=== PATIENT | male | born 1975 | race Caucasian/White ===

== ENCOUNTER 2019-08-03 07:58 | Emergency (ER) | payer OTHER ==
[~2019-08-03] VITALS: Ht 180.3 cm; Wt 74.8 kg
[2019-08-03 08:08] VITALS: BP 134/98
[2019-08-03] MEDS ORDERED: KETOROLAC 30 MG/ML VIAL IVP ONE (08:30)
[2019-08-03] MEDS ORDERED: NACL 0.9% 1,000 ML IV ONE (08:30)
[2019-08-03 09:34] VITALS: BP 138/98
== END 2019-08-03 09:35 | disposition home or self-care (01) ==
LOC: MED 07:58
DX: F41.9 Anxiety disorder, unspecified (principal); R05 Cough; Z88.1 Allergy status to other antibiotic agents
CPT/HCPCS: 93005; 96374; 99283; J1885; J7030

== ENCOUNTER 2019-09-21 09:20 | Inpatient (IN) | payer OTHER ==
[~2019-09-21] VITALS: Ht 180.3 cm; Wt 74.4 kg
[2019-09-21 09:31] VITALS: BP 141/97
--- NOTE | 2019-09-21 09:39 | NUR ---
PATIENT AMBULATED TO BED 2.
--- NOTE | 2019-09-21 10:09 | NUR ---
PT BIB SELF WITH C/O ALCOHOL WITHDRAWAL SX. PT STATES HAVING TREMOUS WHILE DRIVING TO WORK THIS MORNING. ALSO C/O FEELING NAUSEATED AND DEHYDRATED AND HAVING INTERMITTENT CRAMPING MEDIAL ABDOMINAL PAIN. DENIES V/D; SKIN IS PINK/WARM/DRY; AAOX4 WITH EVEN AND STEADY GAIT; LUNGS CLEAR BL; HR TACHYCARDIC; PT DENIES ANY FEVER, CP, SOB, OR COUGH AT THIS TIME; PATIENT STATES PAIN OF 3/10 AT THIS TIME; VSS; PATIENT POSITIONED FOR COMFORT; HOB ELEVATED; BEDRAILS UP X1; BED DOWN. ER MD MADE AWARE OF PT STATUS.
[2019-09-21] MEDS ORDERED: NACL 0.9% 1,000 ML IV ONE ×2 (10:35→12:00)
[2019-09-21] MEDS ORDERED: ONDANSETRON 4 MG/2 ML VIAL IVP ONE (10:35)
[2019-09-21] MEDS ORDERED: FAMOTIDINE 20 MG/2 ML VIAL IVP ONE (10:35)
[2019-09-21] MEDS ORDERED: NALT50TA PO (10:50)
[2019-09-21] MEDS ORDERED: MIRT30TA PO (10:50)
--- NOTE | 2019-09-21 11:00 | NUR ---
PT IS RESTING IN BED. VSS.
[2019-09-21 11:08] LABS: APPEARANCE,URINE CLEAR (CLEAR); BILIRUBIN,URINE NEGATIVE (NEGATIVE); BLOOD, URINE NEGATIVE (NEGATIVE); COLOR,URINE YELLOW (YELLOW); LEUKOCYTE ESTERASE ,URINE NEGATIVE (NEGATIVE); NITRITE, URINE NEGATIVE (NEGATIVE); PH,URINE >=9.0 (5.0-9.0); UGLUCOSE NEGATIVE (NEGATIVE)
[2019-09-21 11:09] LABS: EOSINOPHILS % (AUTO) 0.1 % (0.0-4.0); HEMOGLOBIN 15.6 g/dL (12.0-18.0); LYMPHOCYTES # (AUTO) 0.7 K/uL (2.0-11.5); LYMPHOCYTES % (AUTO) 16.5 % (20.5-51.1); MEAN CORPUSCULAR HEMOGLOBIN 35 pg (27-31); MEAN CORPUSCULAR HGB CONC 34 g/dL (33-37); MEAN CORPUSCULAR VOLUME 101.9 fL (80-94); MONOCYTES # (AUTO) 0.5 K/uL (0.8-1.0); MONOCYTES % (AUTO) 10.9 % (1.7-9.3); NEUTROPHILS # (AUTO) 3.2 K/uL (1.8-7.7); NEUTROPHILS % (AUTO) 71.5 % (42.2-75.2); PLATELET COUNT (AUTO) 196 K/uL (140-450); RED BLOOD CELL COUNT(AUTO) 4.51 MIL/uL (4.20-6.10); RED CELL DISTRIBUTION WIDTH 14.9 % (11.6-13.7); WHITE BLOOD COUNT (AUTO) 4.5 K/uL (4.8-10.8)
[2019-09-21 11:18] LABS: ALBUMIN 4.6 g/dL (3.4-5.0); ANION GAP 17.6 (8-16); CARBON DIOXIDE 26.1 mmol/L (21-32); CREATININE 0.9 mg/dL (0.7-1.3); POTASSIUM 3.7 mmol/L (3.5-5.1); TOTAL BILIRUBIN 0.7 mg/dL (0.0-1.0)
--- NOTE | 2019-09-21 11:50 | NUR ---
PT AMBULATED TO BATHROOM WITH STEADY GAIT.
[2019-09-21] MEDS ORDERED: LORazepam 2 MG/ML VIAL IVP PRN (12:00)
[2019-09-21] MEDS ORDERED: POTASSIUM CHLORIDE 10 MEQ TABER PO PRN (12:00)
[2019-09-21] MEDS ORDERED: MAG SULF 2000 MG/WATER PREMIX 50 ML IV PRN (12:00)
[2019-09-21] MEDS: chlordiazePOXIDE 25 MG CAP PO SCH ×2 (12:34→18:29)
--- NOTE | 2019-09-21 12:43 | NUR ---
PT'S MOTHER IS AT BEDSIDE AND TALKING TO PT.
[2019-09-21] MEDS ORDERED: ONDANSETRON 4 MG/2 ML VIAL IVP PRN (13:05)
[2019-09-21] MEDS ORDERED: ALBUTEROL 0.083% 2.5 MG/3 ML NEBU IH PRN (13:05)
[2019-09-21] MEDS ORDERED: ACETAMINOPHEN 325 MG TAB PO PRN (13:05)
[2019-09-21] MEDS ORDERED: HYDROcodone/APAP 5/325 MG 1 TAB TAB PO PRN (13:05)
--- NOTE | 2019-09-21 13:51 | NUR ---
PT IS RESTING IN BED. INFORMED PT HE CAN EAT PER DR. CISSE.
--- NOTE | 2019-09-21 15:15 | NUR ---
PT ARRIVED ON THE UNIT PT AMBULATE FROM GURNEY TO BED WITH A STEADY GAIT. ORIENTED PT TO UNIT, STAFF AND ROOM. PT APPEARS STABLE AND IN NO APPARENT DISTRESS. ALL SAFETY MEASURES ARE IN PLACE ADMIT VITALS TAKEN. MRSA NARES COLLECTED. HEAD TO TOE ASSESSMENT PERFORM PT IV SITE PATENT AND SHOWS NO SIGNS OF INFILTRATION OR INFLAMMATION. PT MOTHER AT BEDSIDE WILL CONTINUE TO MONITOR PT
--- NOTE | 2019-09-21 15:15 | NUR ---
Patient will be admitted to care of alcohol withdrawal. Admited to Telemetry. Will go to room 107B. Belongings list completed. Report to CORRY Armenta.
[2019-09-21 16:01] VITALS: BP 117/68
--- NOTE | 2019-09-21 17:12 | NUR ---
FREQUENT ROUNDING ON PT PT APPEARS STABLE AND IN NO APPARENT DISTRESS. ALL SAFETY MEASURES ARE IN PLACE WILL CONTINUE TO MONITOR
--- NOTE | 2019-09-21 19:26 | NUR ---
endorsed pt to pm rn pt awake in bed pt appears stable and in no apparent distress. all safety measures are in place
--- NOTE | 2019-09-21 19:27 | NUR ---
RECEIVED BEDSIDE REPORT FROM DAY SHIFT NURSE JOSÉ LUIS RN, TP STABLE, NO DISTRESS NOTED, IV TO LR AC 20G PATEN INTACT, INFUSING NS @ 100ML/HR, INFUSING WELL, PT ON ROOM AIR, NO SOB NOTED, INITIAL ASSESSMENT DONE, ALL SAFETY PRECAUTION MET, CALL LIGHT WITHIN REACH, WILL CONTINUE TO MONITOR.
[2019-09-21 20:00] VITALS: BP 116/75
[2019-09-21] MEDS ORDERED: MIRTAZAPINE 15 MG TAB PO SCH (21:00)
--- NOTE | 2019-09-21 21:10 | NUR ---
DUE MEDICATION ADMINISTERED, PT TOLERATED WELL, NO DISTRESS NOTED, CALL LIGHT WITHIN REACH, WILL CONTINUE TO MONITOR.
[2019-09-22] VITALS: BP 132/83
[2019-09-22] MEDS: chlordiazePOXIDE 25 MG CAP PO SCH ×2 (00:35→05:39)
--- NOTE | 2019-09-22 00:35 | NUR ---
CHECKED ON PT, V/S TAKEN, WNL, DUE MEDICATION GIVEN, PT TOLERATED WELL, CALL LIGHT WITHIN REACH, WILL CONTINUE TO MONITOR.
--- NOTE | 2019-09-22 02:19 | NUR ---
PT SLEEPING, NO DISTRESS NOTED, CALL LIGHT WITHIN REACH, WILL CONTINUE TO MONITOR.
[2019-09-22 04:00] VITALS: BP 120/80
--- NOTE | 2019-09-22 04:05 | NUR ---
PT SLEEPING, NO DISTRESS NOTED, V/S TAKEN, CALL LIGHT WITHIN REACH WILL CONTINUE TO MONITOR.
--- NOTE | 2019-09-22 06:05 | NUR ---
PT RESTING, NO DISTRESS NOTED, CALL LIGHT WITHIN REACH, WILL CONTINUE TO MONITOR.
[2019-09-22 06:46] LABS: BASOPHILS % (AUTO) 0.7 % (0.0-2.0); EOSINOPHILS # (AUTO) 0.1 K/uL (0-0.4); EOSINOPHILS % (AUTO) 1.7 % (0.0-4.0); HEMATOCRIT 44.8 % (36-52); HEMOGLOBIN 14.9 g/dL (12.0-18.0); LYMPHOCYTES # (AUTO) 1.6 K/uL (2.0-11.5); LYMPHOCYTES % (AUTO) 37.2 % (20.5-51.1); MEAN CORPUSCULAR HEMOGLOBIN 35 pg (27-31); MEAN CORPUSCULAR HGB CONC 33 g/dL (33-37); MEAN CORPUSCULAR VOLUME 103.7 fL (80-94); MONOCYTES # (AUTO) 0.6 K/uL (0.8-1.0); MONOCYTES % (AUTO) 12.6 % (1.7-9.3); NEUTROPHILS # (AUTO) 2.1 K/uL (1.8-7.7); NEUTROPHILS % (AUTO) 47.8 % (42.2-75.2); PLATELET COUNT (AUTO) 152 K/uL (140-450); RED BLOOD CELL COUNT(AUTO) 4.32 MIL/uL (4.20-6.10); RED CELL DISTRIBUTION WIDTH 14.9 % (11.6-13.7); WHITE BLOOD COUNT (AUTO) 4.4 K/uL (4.8-10.8)
--- NOTE | 2019-09-22 07:24 | NUR ---
ENDORSED PT TO DAY SHIFT NURSE CARLA RN. PT SLEEPING, NO DISTRESS NOTED, CALL LIGHT WITHIN REACH.
--- NOTE | 2019-09-22 07:25 | NUR ---
REPORT RECEIVED FROM WIND TUNNEL TECHNICIAN NURSE, PT SLEEPING QUIETLY IN NAD, RESP EVEN UNLABORED, SKIN WARM DRY, AROUSES EASILY, OX4, DENIES PAIN OR DISCOMFORT, NO TREMORS NOTED, POC DISCUSSED, NO IMMEDIATE NEEDS AT THIS TIME, WILL CONTINUE TO MONITOR.
[2019-09-22 07:57] LABS: ALBUMIN 3.5 g/dL (3.4-5.0); ANION GAP 13.9 (8-16); CARBON DIOXIDE 25.2 mmol/L (21-32); CREATININE 0.9 mg/dL (0.7-1.3); POTASSIUM 4.1 mmol/L (3.5-5.1); TOTAL BILIRUBIN 1.7 mg/dL (0.0-1.0)
[2019-09-22 08:00] VITALS: BP 147/92
[2019-09-22] MEDS ORDERED: THIAMINE 200 MG/2 ML VIAL IV SCH (09:00)
--- NOTE | 2019-09-22 09:06 | NUR ---
PATIENT HAS BEEN SCREENED AND CATEGORIZED LOW NUTRITION RISK. PATIENT WILL BE SEEN WITHIN 7 DAYS OF ADMISSION. 09/29/[address]
--- NOTE | 2019-09-22 09:55 | NUR ---
AM VIT B GIVEN IV PER ORDER, PT RESTING QUIETLY, NO DISTRESS NOTED, PT DENIES ANY NEEDS, WILL CONTINUE TO MONTIOR
--- NOTE | 2019-09-22 11:02 | NUR ---
PT STATES HE FEELS MUCH BETTER AND WANTS TO BE DISCHARGED, PT STATES HE HAS BEEN BATTLING ALCOHOL ADDICTION AND REHAB FOR OVER 3 YEARS, CURRENTLY GOES TO AA MEETINGS, HAS A SPONSOR, PT ALSO SEES PSYCHIATRIST, HAS RX FROM HIS PRIMARY CARE DOCTOR FOR DIAZEPAM FOR WITHDRAW SYMPTOMS, PT STATES HE WAS "WEAK" AND "SLIPPED" AND HAD SOME DRINKS UNDER STRESS LAST WEEK, BUT INTENDS TO GET BACK TO AA MEETINGS TO TRY TO QUIT ALCOHOL. PT EXPLAINED THAT ATTENDING WILL ROUND TODAY TO DISCUSS POC, PT VERBALIZED UNDERSTANDING, DECIDED AGAINST LEAVING AMA.
[2019-09-22 12:00] VITALS: BP 140/89
--- NOTE | 2019-09-22 13:09 | NUR ---
DISCHARGE INSTRUCTION GIVEN AND EXPLAINED TO PT, PT VERBALIZED FULL UNDERSTANDING, PT UP WALKING AROUND WITH STEADY GAIT, IV DC'D, CATH TIP INTACT, BLEEDING CONTROLLED, PT WAITING FOR MOM TO DRIVE HIM HOME,
--- NOTE | 2019-09-22 13:25 | NUR ---
PT ESCORTED OUT TO FRONT LOBBY, PT AMBULATES WELL WITH STEADY GAIT. ALL BELONGINGS TAKEN WITH PT.
--- NOTE | 2019-09-27 15:18 | NUR ---
MARQUITA contacted patient's PCP and made appointment with Dr. Bailee Patel [phone]. MARQUITA spoke with Pallavi and made appointment for 10/13/2019 @ 1:00PM [place] [address] [place] [id number]. MARQUITA/KORTNEY will follow up with patient. Addendum: 09/27/19 at 1543 by Yunier JOSEPH MARQUITA contacted patient [phone]. Patient was notified of appointment date. Patient verbalized appreciation. MARQUITA provided patient PCP phone number if patient decides to reschedule: [phone]. MARQUITA/KORTNEY will follow up as needed.
== END 2019-09-22 13:25 | disposition home or self-care (01) | DRG 775 ==
LOC: MED 09:20 → MTU 14:48
PROVIDERS: ADMIT Internal Medicine Pulmonary Disease; ATTEND Internal Medicine Pulmonary Disease
DX: F10.239 Alcohol dependence with withdrawal, unspecified (principal); K76.0 Fatty (change of) liver, not elsewhere classified; K70.0 Alcoholic fatty liver; Y90.9 Presence of alcohol in blood, level not specified; Z88.1 Allergy status to other antibiotic agents; Z79.899 Other long term (current) drug therapy
CPT/HCPCS: 36415; 80053; 81003; 83690; 85025; 87081; 93005; 96361; 96374; 96375; 99285; J2060; J2405; J3411; J3490; J7030

== ENCOUNTER 2019-10-07 15:15 | Inpatient (IN) | payer OTHER ==
[~2019-10-07] VITALS: Ht 180.3 cm; Wt 75.3 kg
[~2019-10-07 15:15] MED LIST: MIRT30TA PO; NALT50TA PO
[2019-10-07 15:49] VITALS: BP 143/104
--- NOTE | 2019-10-07 15:58 | NUR ---
ASSISTED PT TO WAIT IN THE LOBBY.
--- NOTE | 2019-10-07 16:04 | NUR ---
PT AMBULATED TO BED 1.
[2019-10-07] MEDS ORDERED: NACL 0.9% 1,000 ML IV ONE (16:15)
--- NOTE | 2019-10-07 16:32 | NUR ---
PATIENT PRESENTS TO ED COMPLAINING OF ALCOHOL INTOXICATION. PT ADMITS TO DRINKING 4 SHOTS OF VODKA 90 MINS AGO. PT WITH KNOWN CASE OF ALCOHOLISM, COUNSELOR ADVISED PT TO GO TO ER FOR DETOXIFICATION. PT STATES CHEST PAIN AND GENERAL BODY ACHES. -VOMITING, -LOC. PT STATES HISTORY OF SPASMS IN FINGERS AND TOES. PT AAOX4, STEADY GAIT, FOLLOWS COMMANDS. PERRL, 3MM PUPILS. HR EVEN AND REGULAR; PT DENIES ANY FEVER, SOB, OR COUGH AT THIS TIME; PATIENT STATES GENERALIZED BODY PAIN AT THIS TIME; VSS; PATIENT POSITIONED FOR COMFORT; HOB ELEVATED; BEDRAILS UP X2; BED DOWN. ER MD MADE AWARE OF PT STATUS.
[2019-10-07] MEDS ORDERED: LORazepam 2 MG/ML VIAL IVP ONE (18:15)
[2019-10-07] MEDS ORDERED: MULTIVITAMIN-12 10 ML, THIAMINE 100 MG, MAGNESIUM SULFATE 50% 2,000 MG, FOLIC ACID 1 MG... IV SCH ×5 (18:15)
[2019-10-07] MEDS ORDERED: MAG SULF 2000 MG/WATER PREMIX 50 ML IV ONE (18:33)
[2019-10-07] MEDS ORDERED: THIAMINE 200 MG/2 ML VIAL ONE (18:34)
[2019-10-07] MEDS ORDERED: MULTIVITAMIN-12 10 ML VIAL IV ONE ×2 (18:34)
[2019-10-07 18:54] LABS: BASOPHILS % (AUTO) 0.5 % (0.0-2.0); EOSINOPHILS % (AUTO) 0.2 % (0.0-4.0); HEMATOCRIT 43.5 % (36-52); HEMOGLOBIN 14.9 g/dL (12.0-18.0); LYMPHOCYTES # (AUTO) 1.8 K/uL (2.0-11.5); LYMPHOCYTES % (AUTO) 33.8 % (20.5-51.1); MEAN CORPUSCULAR HEMOGLOBIN 35 pg (27-31); MEAN CORPUSCULAR HGB CONC 34 g/dL (33-37); MEAN CORPUSCULAR VOLUME 100.7 fL (80-94); MONOCYTES # (AUTO) 0.6 K/uL (0.8-1.0); MONOCYTES % (AUTO) 11.1 % (1.7-9.3); NEUTROPHILS # (AUTO) 2.9 K/uL (1.8-7.7); NEUTROPHILS % (AUTO) 54.4 % (42.2-75.2); PLATELET COUNT (AUTO) 207 K/uL (140-450); RED BLOOD CELL COUNT(AUTO) 4.32 MIL/uL (4.20-6.10); RED CELL DISTRIBUTION WIDTH 14.3 % (11.6-13.7); WHITE BLOOD COUNT (AUTO) 5.3 K/uL (4.8-10.8)
[2019-10-07 19:11] LABS: ANION GAP 19.8 (8-16); CARBON DIOXIDE 23.7 mmol/L (21-32); CREATININE 0.9 mg/dL (0.7-1.3); POTASSIUM 3.5 mmol/L (3.5-5.1)
--- NOTE | 2019-10-07 19:12 | NUR ---
Gretchen geurra in ED - 10/07/19 at 1913 by MEDKWANS malathi segovia to give report to hospital.
--- NOTE | 2019-10-07 19:13 | NUR ---
documented in wrong pt.
[2019-10-07 19:17] LABS: ALBUMIN 3.9 g/dL (3.4-5.0); TOTAL BILIRUBIN 1.1 mg/dL (0.0-1.0)
--- NOTE | 2019-10-07 19:25 | NUR ---
report given to malathi briones. pt stable. banana bag infusing in pt. malathi brito to put the med rec.
--- NOTE | 2019-10-07 19:52 | NUR ---
RECEIVED FROM AM R N IN BED AWAKE AND ALERT. ABLE TO VERBALIZE NEEDS WELL. SMILING. NO COMPLAINTS DONE AT THIS TIME. WITH RAC#[address] AND INFUSING WITH A BANANA BAG AT THIS TIME. CARE PLANS FOR THE NIGHT DISCUSSED WITH HIM AND CALL LIGHT WITH IN REACH. ON TELEMETRY MONITORING . DX. OF ALCOHOL WITHDRAWAL. ENCOURAGED TO CALL FOR ANY HELP HE MAY NEED. "OK"
--- NOTE | 2019-10-07 19:53 | NUR ---
Patient will be admitted to care of Dr. Bui. Admited to Tele. Will go to room 105B. Belongings list completed. Report to CORRY Ray.
--- NOTE | 2019-10-07 19:54 | NUR ---
TRANSFER OF CARE AND REPORT GIVEN TO CORRY FABIAN.
[2019-10-07 19:55] VITALS: BP 121/80
[2019-10-07] MEDS ORDERED: DIAZ5TAB7 PO (20:00)
--- NOTE | 2019-10-07 21:30 | NUR ---
PT. SLEEPING. WAKES UP EASILY W HEN CALLED BY NAME. ABLE TO VERBALIZE NEEDS WELL. CLEAR SPEECH. NOTED ABLE TO SIT UP AND STAND UP. STATED HE JUST WANTS TO REST AND MAYBE TOMORROW HE CAN GO HOME.
[2019-10-07] MEDS ORDERED: GABA300C PO (22:28)
[2019-10-07] MEDS ORDERED: NALT50TA5 PO (22:28)
[2019-10-07] MEDS ORDERED: BACL10TA4 PO (22:28)
[2019-10-07] MEDS ORDERED: DIAZ5TAB13 PO (22:28)
--- NOTE | 2019-10-07 23:06 | NUR ---
JOSAFAT BENSON CALLED AND WITH NEW ORDERS . PT. MEDICATIONS BROUGHT WITH HIM AND INVENTORIED WITH CHARGE NURSE . INFORMED MD ABOUT IT. AWARE. ORDERS TO CONTINUE WITH BANANA BAG.
[2019-10-07] MEDS ORDERED: LORazepam 2 MG/ML VIAL IVP PRN (23:15)
[2019-10-08 00:49] VITALS: BP_SYST 145; BP_SYST 98; BP_DIAS 76; BP_DIAS 78
--- NOTE | 2019-10-08 00:58 | NUR ---
PT. WENT TO RESTROOM. BACK TO SLEEP AT THIS TIME. NO COMPLAINTS OF ANY PAIN DONE. IVF SITE INTACT AND NO INFILTRATION NOTED. CALL LIGHT WITH IN REACH. ABLE TO USE CALL LIGHT FOR HELP. A/O X 4.
[2019-10-08 04:00] VITALS: BP 135/93
--- NOTE | 2019-10-08 04:02 | NUR ---
SLEEPING WELL. NO RESTLESSNESS. CALL LIGHT AT BEDSIDE WITH IN REACH. TELEMETRY MONITORING.
--- NOTE | 2019-10-08 05:55 | NUR ---
PT. BEEN SLEEPING WELL THIS SHIFT. NO FURTHER SHAKINESS NOTED WHILE SLEEPING. ABLE TO VERBALIZE NEEDS WELL . TELEMETRY MONITORING. BANANA BAG INFUSING WELL AT 100 ML/H ORDERED BY MD. DOMINGO. IVF SITE INTACT AND NO INFILTRATION .
--- NOTE | 2019-10-08 07:22 | NUR ---
ENDORSED TO AM RN FOR CONTINUITY OF CARE AWAKE AND ALERT. NO COMPLAINTS DONE.
--- NOTE | 2019-10-08 07:25 | NUR ---
RECEIVED REPORT FROM NIGHT NURSE. PATIENT IS IN BED, AWAKE AND ALERT, ORIENTED X4. IV INTACT AND PATENT TO RIGHT AC. NO S/S OF DISTRESS NOTED. BED IN LOW POSITION, SAFETY MEASURES IN PLACE. CALL LIGHT WITHIN REACH.
[2019-10-08 08:00] VITALS: BP 156/99
[2019-10-08 08:07] LABS: BASOPHILS # (AUTO) 0.1 K/uL (0.00-0.22); BASOPHILS % (AUTO) 1.3 % (0.0-2.0); EOSINOPHILS % (AUTO) 0.7 % (0.0-4.0); HEMATOCRIT 43.5 % (36-52); HEMOGLOBIN 14.6 g/dL (12.0-18.0); LYMPHOCYTES # (AUTO) 1.5 K/uL (2.0-11.5); LYMPHOCYTES % (AUTO) 29.1 % (20.5-51.1); MEAN CORPUSCULAR HEMOGLOBIN 34 pg (27-31); MEAN CORPUSCULAR HGB CONC 34 g/dL (33-37); MEAN CORPUSCULAR VOLUME 101.8 fL (80-94); MONOCYTES # (AUTO) 0.5 K/uL (0.8-1.0); MONOCYTES % (AUTO) 9.7 % (1.7-9.3); NEUTROPHILS % (AUTO) 59.2 % (42.2-75.2); PLATELET COUNT (AUTO) 170 K/uL (140-450); RED BLOOD CELL COUNT(AUTO) 4.28 MIL/uL (4.20-6.10); RED CELL DISTRIBUTION WIDTH 14.6 % (11.6-13.7); WHITE BLOOD COUNT (AUTO) 5.1 K/uL (4.8-10.8)
[2019-10-08] MEDS ORDERED: INFLUENZA VACCINE QUAD 0.5 ML SYR IMVAC PRN (09:00)
--- NOTE | 2019-10-08 10:00 | NUR ---
IVF BANANA BAG INFUSING @ 100ML/HR. TOLERATING WELL VIA RIGHT AC. PATIENT REPORTS INCREASED ANXIETY, ATIVAN 1MG IVP GIVEN ORDERED PRN. NO S/S OF DISTRESS NOTED. PATIENT AMBULATED TO THE RESTROOM AND BACK TO BED WITH STEADY GAIT. CALL LIGHT WITHIN REACH.
[2019-10-08] MEDS: MULTIVITAMIN-12 10 ML, THIAMINE 100 MG, FOLIC ACID 1 MG, MAGNESIUM SULFATE 50% 2,000 MG... IV SCH ×5 (10:18)
[2019-10-08 12:00] VITALS: BP 147/99
--- NOTE | 2019-10-08 12:00 | NUR ---
PATIENT IS ALERT, ORIENTED X4. NO S/S OF DISTRESS NOTED. IV BANANA BAG INFUSING AT 100ML/HR AND TOLERATING WELL.
[2019-10-08] MEDS ORDERED: LORazepam 2 MG/ML VIAL IVP PRN (12:05)
[2019-10-08 12:11] LABS: ANION GAP 13.1 (8-16); CARBON DIOXIDE 27.3 mmol/L (21-32); CREATININE 0.8 mg/dL (0.7-1.3); POTASSIUM 4.4 mmol/L (3.5-5.1)
--- NOTE | 2019-10-08 14:00 | NUR ---
PATIENT IS SITTING UP IN BED. NO S/S OF DISTRESS NOTED.
[2019-10-08] MEDS: chlordiazePOXIDE 25 MG CAP PO SCH ×2 (14:37→18:03)
[2019-10-08 16:00] VITALS: BP 125/96
--- NOTE | 2019-10-08 18:29 | NUR ---
IV CANULA OUT, WILL ATTEMPT TO REINSERT IV.
--- NOTE | 2019-10-08 19:20 | NUR ---
IV INSERTED TO RIGHT WRIST 22G CANNULA. TOLERATED WELL. REPORT GIVEN TO NIGHT NURSE. PATIENT IN STABLE CONDITION. Addendum: 10/08/19 at 1956 by Jovanny Ramey RN ERROR. DISREGARD NOTE ABOVE IS FOR ANOTHER PATIENT.
--- NOTE | 2019-10-08 19:35 | NUR ---
RECEIVED FROM AM RN IN BED AWAKE AND SITTING UP AT SIDE OF BED. PER AM RN PT. SEEN BY MD CHRISTENSEN WITH NEW ORDERS FOR LITHIUM. ABLE TO VERBALIZE NEEDS WELL. NO SOB. NO PAIN AT THIS TIME. CARE PLANS FOR THE NIGHT DISCUSSED WITH HIM. AFEBRILE. TELEMETRY MONITORING. DX. OF ETOH WITHDRAWAL. RE-ORIENTED TO CALL LIGHT USE FOR HELP.
[2019-10-08 19:40] VITALS: BP 138/80
--- NOTE | 2019-10-08 20:00 | NUR ---
NEW IVF SITE INSERTED BY CHARGE NURSE RT OLD IVF SITE TO RAC NOT PRESENT. PER AM RN IT WAS OUT THIS P.M. TOLERATED WELL. GOOD BLOOD RETURN.
--- NOTE | 2019-10-08 21:02 | NUR ---
PT. AWAKE AND ALERT. NOTED WITH TREMORS STILL. WILL MEDICATE WITH ATIVAN IVP. 1 MG.
--- NOTE | 2019-10-08 22:57 | NUR ---
SLEEPING WELL AT THIS TIME. PT. ABLE TO WAKE UP WHEN CALLED BY NAME AND ABLE TO ANSWER ME VERBALLY.
[2019-10-09] VITALS: BP 134/88
--- NOTE | 2019-10-09 | NUR ---
WOKE UP EASILY WHEN TOUCHED. NO COMPLAINTS DONE. SLEEPING WELL. ABLE TO VERBALIZE NEEDS WELL. A/O X 4. ROM X 4. TELEMETRY MONITORING.
[2019-10-09 03:53] VITALS: BP 125/88
--- NOTE | 2019-10-09 03:58 | NUR ---
SLEEPING WELL THIS SHIFT. NO COMPLAINTS DONE.
--- NOTE | 2019-10-09 05:25 | NUR ---
PT. SLEPT WELL THIS SHIFT. WAKES UP EASILY WHEN TOUCHED OR CALLED BY NAME. TELEMETRY MONITORING. ABLE TO VERBALIZE NEEDS WELL.
--- NOTE | 2019-10-09 07:10 | NUR ---
RECEIVED BEDSIDE REPORT FROM SOLUTION DIRECTOR NURSE , PT IS AWAKE AND ALERT IN BED ON HIS PHONE. NO S/S OF ACUTE DISTRESS. ON ROOM AIR, SKIN INTACT. IV SITE ON THE L WRIST 22 G. CALL LIGHT IS WITHIN REACH, WILL CONTINUE TO MONITOR
--- NOTE | 2019-10-09 07:23 | NUR ---
ENDORSED TO AM RN FOR CONTINUITY OF CARE AWAKE AND ALERT. NO COMPLAINTS DONE. TELEMETRY MONITORING.
[2019-10-09 08:00] VITALS: BP 124/89
--- NOTE | 2019-10-09 08:26 | NUR ---
PATIENT HAS BEEN SCREENED AND CATEGORIZED LOW NUTRITION RISK. PATIENT WILL BE SEEN WITHIN 7 DAYS OF ADMISSION. 10/14/[address]
[2019-10-09] MEDS: chlordiazePOXIDE 25 MG CAP PO SCH (09:00)
[2019-10-09] MEDS: MULTIVITAMIN-12 10 ML, THIAMINE 100 MG, FOLIC ACID 1 MG, MAGNESIUM SULFATE 50% 2,000 MG... IV SCH ×5 (09:25)
--- NOTE | 2019-10-09 09:32 | NUR ---
BANANA BAG INFUSING ORDERED. PT REFUSED THE 0900 LIBRIUM, STATES IT MAKES HIM FEEL "DIZZY AND SLEEPY".
--- NOTE | 2019-10-09 11:38 | NUR ---
Brokerage Coordinator Note: Basic Screen: Yes High Risk DC Screen Yes Name: JONE Grimm Relationship: MOTHER Pre-Admission Living Arrangements: Lives with Other Prior ADL Independent Current Home Health Name/Tel: N/A Current DME/02 Name/Tel: N/A Current Hospice Name/Tel: N/A Current Dialysis Name/Tel: N/A Healthcare Decision Maker: Patient Advance Directive No - PROVIDED EDUCATION Physician Orders for Life Sustaining Treatment Form Yes Patient/Family Have Educational Needs No Information Taught: Advance Directive Community Resources Person Taught: Patient Teaching Tools: Community Resources Computer Generated Print Verbal Factors Affecting Learning: None Participation Level: Active Evaluation: Verbalizes Understanding Needs Additional Education: No Discipline: Case Mgt/Social Svcs Tentative Discharge Plan/Destination: No Needs Identified Will require assistance post discharge: No Referred to Continuity Editor: No Tentative Discharge Plan Summary: Patient is a 44 year old male admitted for alcohol withdrawal. Patient provided no further medical history. Patient was admitted from home. Patient's PCP is Dr. Bailee Patel and has a follow up appointment 10/13/2019. SW verified demographics with patient. Patient stated that he has a mental health history of major depressive disorder and obsessive compulsive disorder. Patient stated that he is medication compliant and takes medication as directed. Patient denies SI/HI. Patient stated that he is a recovering alcoholic and had taken 30ml of vodka before admission. Patient denies any other substance abuse. Patient stated that he has made plans prior to has admission with inpatient substance use rehabilitation and sober living. Patient stated that he contacted [facility] and found contracted facilities and is now on the waiting list for multiple inpatient programs. SW provided additional substance abuse resources. SW provided counseling for patient. SW used motivational interviewing techniques and affirmation for patient in seeking assistance for his substance abuse. Patient verbalized appreciation. SW asked open ended questions to identify patient's plan after discharge. Patient stated that he intends to find inpatient rehabilitation services and sober living. SW also provided education on advanced directive and provided patient document to fill out at a later time. No further needs identified. Signature: ZANA Bullock Date: Oct 09, 2019 Time: 11:35
[2019-10-09 12:00] VITALS: BP 116/79
--- NOTE | 2019-10-09 14:15 | NUR ---
PT HAS DC'D. PT WAS GIVEN DC INSTRUCTIONS AND VERBALIZED UNDERSTANDING. FLU VACCINE WAS ADMINISTERED UPON DC. IV SITE AND WRIST BAND WERE REMOVED. PT LEFT WITH ALL HIS BELONGINGS IN STABLE CONDITION.
--- NOTE | 2019-10-10 12:12 | NUR ---
PCP Appointment: MARQUITA contacted Dr. Bailee Patel's office [phone] and spoke to Magui. Per Magui, patient already has an appointment with Dr. Patle at 1:00PM on 10/13/2019 [facility] [id number] [place] [place] [id number]. Patient was notified. No further needs identified.
== END 2019-10-09 14:10 | disposition home or self-care (01) | DRG 775 ==
LOC: MED 15:15 → MTU 19:01
PROVIDERS: ADMIT Internal Medicine Pulmonary Disease; ATTEND Internal Medicine Pulmonary Disease
DX: F10.239 Alcohol dependence with withdrawal, unspecified (principal); Z79.899 Other long term (current) drug therapy; Y90.6 Blood alcohol level of 120-199 mg/100 ml; Z88.1 Allergy status to other antibiotic agents
CPT/HCPCS: 36415; 80048; 80053; 85025; 87081; 96361; 96365; 96375; 99291; A9153; G0482; J2060; J3411; J3475; J3490; J7030

== ENCOUNTER 2021-04-29 03:05 | Emergency (ER) | payer OTHER ==
[~2021-04-29] VITALS: Ht 180.3 cm; Wt 80.3 kg
[~2021-04-29 03:05] MED LIST changes: +BACL10TA4 PO; +DIAZ5TAB13 PO; +GABA300C PO; +MIRT-92 PO; -MIRT30TA PO; +NALT50TA5 PO
[2021-04-29 03:09] VITALS: BP 144/112
--- NOTE | 2021-04-29 03:09 | NUR ---
to bed ambulatory
--- NOTE | 2021-04-29 03:15 | NUR ---
PT BIB SELF FOR C/O CONSTIPATION AND BLOOD IN STOOL X 2 WEEKS. PT STATES HE HAD A BM TODAY. PT REPORTS STRAINING WITH BLOOD IN TOILET AND WHEN WIPING, ALONG WITH ABDOMINAL PAIN DURING BM. PT DENIES STOOL IS BLACK IN COLOR, REPORTS MORE "BRYAN" COLOR. PT REPORTS HE HAS HX OF ALCOHOL ABUSE AND HAS BEEN RELAPSING THE LAST 6 MONTHS. PT REPORTS "I KNOW IM VERY DEHYDRATED." PT REPORTS EPISODE OF VOMITING TODAY AFTER TRYING TO DRINK INCREASED AMOUNT OF WATER. PT REPORT APPETITE CHANGES. PT DENIES CP, SOB, FEVER, CHILLS. SEE COMPLETE ASSESSMENT FOR FURTHER DETAILS. MED HX: DENIES ALLERGIES: SEE LISTED.
--- NOTE | 2021-04-29 03:25 | NUR ---
LAB AT BEDSIDE
--- NOTE | 2021-04-29 03:36 | NUR ---
Female Load Checker accompanied patient for Rectal Exam. PT TOLERATED PROCEDURE WELL.
[2021-04-29 03:37] LABS: BASOPHILS # (AUTO) 0.2 K/uL (0.00-0.22); BASOPHILS % (AUTO) 3.3 % (0.0-2.0); EOSINOPHILS # (AUTO) 0.1 K/uL (0-0.4); EOSINOPHILS % (AUTO) 1.2 % (0.0-4.0); HEMATOCRIT 47.2 % (36-52); HEMOGLOBIN 16.3 g/dL (12.0-18.0); LYMPHOCYTES # (AUTO) 1.8 K/uL (2.0-11.5); LYMPHOCYTES % (AUTO) 24.4 % (20.5-51.1); MEAN CORPUSCULAR HEMOGLOBIN 35 pg (27-31); MEAN CORPUSCULAR HGB CONC 35 g/dL (33-37); MEAN CORPUSCULAR VOLUME 102.1 fL (80-94); MONOCYTES # (AUTO) 0.9 K/uL (0.8-1.0); MONOCYTES % (AUTO) 12.1 % (1.7-9.3); NEUTROPHILS # (AUTO) 4.3 K/uL (1.8-7.7); PLATELET COUNT (AUTO) 207 K/uL (140-450); RED BLOOD CELL COUNT(AUTO) 4.63 MIL/uL (4.20-6.10); WHITE BLOOD COUNT (AUTO) 7.2 K/uL (4.8-10.8)
[2021-04-29 03:54] LABS: PROTHROMBIN TIME 10.7 secs (10.8-13.4)
[2021-04-29 04:13] LABS: POTASSIUM 3.8 mmol/L (3.5-5.1)
[2021-04-29 04:14] LABS: ALBUMIN 4.3 g/dL (3.4-5.0); ANION GAP 16.5 (8-16); CARBON DIOXIDE 23.3 mmol/L (21-32); CREATININE 0.9 mg/dL (0.6-1.3); TOTAL BILIRUBIN 1.2 mg/dL (0.0-1.0)
[2021-04-29] MEDS ORDERED: LIDO15CR2 TP (04:29)
[2021-04-29] MEDS ORDERED: DOCU-299 PO (04:29)
--- NOTE | 2021-04-29 04:40 | NUR ---
ERMD AT BEDSIDE.
[2021-04-29 04:44] VITALS: BP 129/76
--- NOTE | 2021-04-29 04:44 | NUR ---
Patient discharged with v/s stable. Written and verbal after care instructions given and explained. Patient alert, oriented and verbalized understanding of instructions. Ambulatory with steady gait. All questions addressed prior to discharge. ID band removed. Patient advised to follow up with PMD. Rx of COLACE AND LIDOCAINE given. Patient educated on indication of medication including possible reaction and side effects. Opportunity to ask questions provided and answered.
== END 2021-04-29 04:44 | disposition home or self-care (01) ==
LOC: MED 03:05
DX: K64.4 Residual hemorrhoidal skin tags (principal); K59.00 Constipation, unspecified; Z79.899 Other long term (current) drug therapy; Z88.1 Allergy status to other antibiotic agents
CPT/HCPCS: 36415; 80053; 83690; 85025; 85610; 86886; 86900; 86901; 99283

== ENCOUNTER 2022-01-09 15:47 | Emergency (ER) | payer OTHER ==
[~2022-01-09] VITALS: Ht 180.3 cm; Wt 86.2 kg
[~2022-01-09 15:47] MED LIST changes: +DOCU-299 PO; +LIDO15CR2 TP
[2022-01-09 16:00] VITALS: BP 133/90
--- NOTE | 2022-01-09 16:15 | NUR ---
46 y/o male ambulated to bed 3, pt states he has hx of alcohol abuse, pt states he met with primary care for help for detox. pt states he has been having shaking, itching, auditory hallucinations. denies suicidal ideation or harm to self or others. pt states he did rehab in 2020. pmh: depression allergy: soy, nsaids med: mirtazapine, hydroxyzine, klonopin
--- NOTE | 2022-01-09 16:19 | NUR ---
PATIENT PLACED IN GOWN, CONNECTED TO BEDSIDE MONITOR, SAFETY PRECAUTIONS PUT INTO PLACE.
[2022-01-09] MEDS ORDERED: THIAMINE 200 MG/2 ML VIAL IM ONE (16:25)
[2022-01-09] MEDS ORDERED: LORazepam 2 MG/ML VIAL IVP ONE (16:25)
[2022-01-09] MEDS ORDERED: NACL 0.9% 1,000 ML IV ONE ×2 (16:25→18:45)
[2022-01-09] MEDS ORDERED: FOLIC ACID 1 MG TAB PO ONE (16:25)
[2022-01-09 16:46] LABS: BASOPHILS % (AUTO) 0.5 % (0.0-2.0); EOSINOPHILS % (AUTO) 0.2 % (0.0-4.0); HEMATOCRIT 43.8 % (36-52); HEMOGLOBIN 15.1 g/dL (12.0-18.0); LYMPHOCYTES # (AUTO) 1.5 K/uL (2.0-11.5); LYMPHOCYTES % (AUTO) 20.8 % (20.5-51.1); MEAN CORPUSCULAR HEMOGLOBIN 35 pg (27-31); MEAN CORPUSCULAR HGB CONC 35 g/dL (33-37); MEAN CORPUSCULAR VOLUME 100.7 fL (80-94); MONOCYTES # (AUTO) 0.7 K/uL (0.8-1.0); MONOCYTES % (AUTO) 9.8 % (1.7-9.3); NEUTROPHILS # (AUTO) 4.8 K/uL (1.8-7.7); NEUTROPHILS % (AUTO) 68.7 % (42.2-75.2); PLATELET COUNT (AUTO) 182 K/uL (140-450); RED BLOOD CELL COUNT(AUTO) 4.35 MIL/uL (4.20-6.10); RED CELL DISTRIBUTION WIDTH 14.1 % (11.6-13.7)
[2022-01-09 17:05] LABS: ALBUMIN 4.2 g/dL (3.4-5.0); MAGNESIUM 2.1 mg/dL (1.8-2.4); TOTAL BILIRUBIN 0.9 mg/dL (0.0-1.0)
[2022-01-09] MEDS ORDERED: chlordiazePOXIDE 25 MG CAP PO ONE (18:05)
[2022-01-09] MEDS ORDERED: LIB25 PO (19:08)
--- NOTE | 2022-01-09 19:21 | NUR ---
Pt report given to LUCINDA AMADOR. Transfer of care at this time.
[2022-01-09 20:02] VITALS: BP 102/60
--- NOTE | 2022-01-09 20:14 | NUR ---
Patient discharged with v/s stable. Written and verbal after care instructions given and explained. Patient alert, oriented and verbalized understanding of instructions. Ambulatory with steady gait. All questions addressed prior to discharge. ID band removed. Patient advised to follow up with PMD. Rx of LIBRIUM given. Opportunity to ask questions provided and answered.
--- NOTE | 2022-01-09 20:51 | NUR ---
The patient's care was reviewed and supervised by Jade Garcia RN.
--- NOTE | 2022-01-12 10:56 | NUR ---
LATE ENTRY- IV NORMAL SALINE DISCONTINUED AT 2013.
== END 2022-01-09 20:15 | disposition home or self-care (01) ==
LOC: MED 15:47
DX: F10.239 Alcohol dependence with withdrawal, unspecified (principal); F32.9 Major depressive disorder, single episode, unspecified; Z79.899 Other long term (current) drug therapy; Z88.1 Allergy status to other antibiotic agents
CPT/HCPCS: 36415; 80053; 83690; 83735; 85025; 96361; 96372; 96374; 99284; J2060; J3411; J7030

== ENCOUNTER 2022-10-28 02:25 | Observation (INO) | payer OTHER ==
[~2022-10-28] VITALS: Ht 180.3 cm; Wt 75.0 kg
[~2022-10-28 02:25] MED LIST changes: +LIB25 PO
[2022-10-28 02:33] VITALS: BP 139/91
--- NOTE | 2022-10-28 02:51 | NUR ---
TO LOBBY. URINE COLLECTED
--- NOTE | 2022-10-28 03:40 | NUR ---
Patient resting in bed, A/Ox4, chest rise and fall symmetrical, no s/s of distress, patient on monitor.
--- NOTE | 2022-10-28 03:40 | NUR ---
Patient stated he "self medicates by drinking most days," last drink 0300 hrs on 10/27/22 and then took Librium 25 mg. Patient states he is now having dull abdominal pain and has also been having nausea for 4 months.
[2022-10-28 04:07] LABS: APPEARANCE,URINE CLEAR (CLEAR); BILIRUBIN,URINE NEGATIVE (NEGATIVE); BLOOD, URINE NEGATIVE (NEGATIVE); COLOR,URINE ORANGE (YELLOW); LEUKOCYTE ESTERASE ,URINE NEGATIVE (NEGATIVE); NITRITE, URINE NEGATIVE (NEGATIVE); PH,URINE 6.5 (5.0-9.0); UGLUCOSE NEGATIVE (NEGATIVE)
--- NOTE | 2022-10-28 04:33 | NUR ---
Patient at CT.
[2022-10-28 04:37] LABS: BASOPHILS % (AUTO) 0.5 % (0.0-2.0); EOSINOPHILS % (AUTO) 0.2 % (0.0-4.0); HEMATOCRIT 42.8 % (36-52); HEMOGLOBIN 14.4 g/dL (12.0-18.0); LYMPHOCYTES # (AUTO) 1.9 K/uL (2.0-11.5); LYMPHOCYTES % (AUTO) 20.2 % (20.5-51.1); MEAN CORPUSCULAR HEMOGLOBIN 35 pg (27-31); MEAN CORPUSCULAR HGB CONC 34 g/dL (33-37); MEAN CORPUSCULAR VOLUME 104.7 fL (80-94); MONOCYTES # (AUTO) 1.3 K/uL (0.8-1.0); MONOCYTES % (AUTO) 14.1 % (1.7-9.3); NEUTROPHILS # (AUTO) 6.2 K/uL (1.8-7.7); PLATELET COUNT (AUTO) 192 K/uL (140-450); RED BLOOD CELL COUNT(AUTO) 4.08 MIL/uL (4.20-6.10); RED CELL DISTRIBUTION WIDTH 14.6 % (11.6-13.7); WHITE BLOOD COUNT (AUTO) 9.5 K/uL (4.8-10.8)
[2022-10-28 05:04] LABS: ANION GAP 17.1 (8-16); CARBON DIOXIDE 26.5 mmol/L (21-32); POTASSIUM 3.6 mmol/L (3.5-5.1)
--- NOTE | 2022-10-28 05:58 | NUR ---
Patient resting in bed, A/Ox4, chest rise and fall symmetrical, no s/s of distress, patient on monitor.
--- NOTE | 2022-10-28 07:05 | NUR ---
Patient resting in bed, A/Ox4, chest rise and fall symmetrical, no s/s of distress, patient on monitor.
--- NOTE | 2022-10-28 07:21 | NUR ---
Change of shift report given to Javier WHEATLEY. Javier WHEATLEY verbalized understanding of report, no further questions.
--- NOTE | 2022-10-28 07:22 | NUR ---
Received report from CORRY Melendez. Assumed care at this time.
[2022-10-28] MEDS ORDERED: [UNRECOGNIZED DRUG - CODE] PO (10:52)
[2022-10-28] MEDS ORDERED: CHLO25CA PO (10:52)
[2022-10-28] MEDS ORDERED: FOLI1TAB89 PO (10:52)
[2022-10-28] MEDS ORDERED: HYDR50CA9 PO (10:52)
[2022-10-28] MEDS ORDERED: CYCL-711 PO (10:53)
--- NOTE | 2022-10-28 10:55 | NUR ---
PATENT MOVED TO ER BED 6
--- NOTE | 2022-10-28 11:01 | NUR ---
Pt report given to LUCINDA NOVOA. Transfer of care at this time.
--- NOTE | 2022-10-28 11:01 | NUR ---
Report recieved from CORRY Herrera for transfer of care.
[2022-10-28] MEDS ORDERED: ONDANSETRON 4 MG/2 ML VIAL IVP PRN (12:05)
[2022-10-28] MEDS ORDERED: ACETAMINOPHEN 325 MG TAB PO PRN (12:05)
[2022-10-28] MEDS ORDERED: MORPHINE SULFATE 2 MG/ML SYR IVP PRN (12:05)
[2022-10-28] MEDS ORDERED: LORazepam 2 MG/ML VIAL IVP PRN (12:05)
[2022-10-28] MEDS: NACL 0.9% 1,000 ML IV SCH ×2 (12:40→23:25)
--- NOTE | 2022-10-28 13:03 | NUR ---
Patient is resting on bed, respirations even and unlabored. All needs met by staff.
--- NOTE | 2022-10-28 15:22 | NUR ---
Patient is resting on bed, respirations even and unlabored. All needs met by staff.
--- NOTE | 2022-10-28 17:36 | NUR ---
Patient will be admitted to care of Dr. Ellsworth. Admited to Med/Surg. Will go to room 107-B. Belongings list completed. Report to LUCINDA Zurita.
--- NOTE | 2022-10-28 17:43 | NUR ---
PT ARRIVED ONTO UNIT VIA GURNEY, ACCOMPANIED BY ER NURSE. PT IS ALERT AND ORIENTED X4, ABLE TO VERBALIZE NEEDS, ABLE TO FOLLOW COMMANDS. RESPIRATIONS ARE EVEN AND UNLABORED ON ROOM AIR. NO SIGNS OF DISTRESS NOTED. ABD IS NONDISTENDED WITH BOWEL SOUNDS NOTED. PT IS CURRENTLY NPO. PT CC IS NAUSEA, PT STATES HE CURRENTLY DOES NOT FEEL NAUSEATED. PT IS CONTINENT OF BOWEL AND BLADDER, UTILIZES REST ROOM INDEPENDENTLY. PT HAS FULL ROM TO UPPER AND LOWER EXTREMITIES.PT HAS IV TO LAC, 18G, RUNNING NS AT 125ML/HR. SKIN IS WARM, DRY, AND INTACT. EDUCATED PT ON HOSPITAL POLICY, VISITATION, AND SMOKING POLICY. ORIENTED PT TO ROOM AND CALL LIGHT SYSTEM. CALL LIGHT WITHIN REACH. ALL SAFETY MEASURES IN PLACE. WILL CONTINUE TO MONITOR.
--- NOTE | 2022-10-28 18:06 | NUR ---
The patient's care was reviewed and supervised by [place] [facility], RN.
--- NOTE | 2022-10-28 19:15 | NUR ---
RECEIVED REPORT FROM OUTGOING RN. PT LYING IN BED RESTING. IV FLUIDS RUNNING VIA LT AC G 18 @125ML/HR. WILL CONTINUE TO MONITOR, COMPLETE ADMISSIONS DOCUMENTATION.
--- NOTE | 2022-10-28 19:20 | NUR ---
ENDORSED PT TO ASSOCIATE PROFESSOR OF MEDIA ARTS NURSE FOR CONTINUITY OF CARE. PT IS STABLE.
[2022-10-29 02:02] VITALS: BP 117/81
[2022-10-29] MEDS: NACL 0.9% 1,000 ML IV SCH ×2 (04:05→12:05)
--- NOTE | 2022-10-29 07:20 | NUR ---
RECEIVED PT FROM LOCK AND DAM REPAIRER NURSE FOR CONTINUITY OF CARE. PT IN BED WITH EYES CLOSED EVEN RISE AND FALL OF CHEST. RESPIRATIONS EVEN AND UNLABORED ON RA.NO DISTRESS NOTED. IV ON L A/C 18G. CALL LIGHT WITHIN REACH. ALL SAFETY PRECAUTIONS IN PLACE.
[2022-10-29 07:39] LABS: BASOPHILS % (AUTO) 0.5 % (0.0-2.0); EOSINOPHILS # (AUTO) 0.1 K/uL (0-0.4); EOSINOPHILS % (AUTO) 1.1 % (0.0-4.0); HEMATOCRIT 38.6 % (36-52); HEMOGLOBIN 13.1 g/dL (12.0-18.0); LYMPHOCYTES # (AUTO) 1.3 K/uL (2.0-11.5); LYMPHOCYTES % (AUTO) 21.1 % (20.5-51.1); MEAN CORPUSCULAR HEMOGLOBIN 36 pg (27-31); MEAN CORPUSCULAR HGB CONC 34 g/dL (33-37); MEAN CORPUSCULAR VOLUME 106.1 fL (80-94); MONOCYTES # (AUTO) 0.7 K/uL (0.8-1.0); MONOCYTES % (AUTO) 10.7 % (1.7-9.3); NEUTROPHILS # (AUTO) 4.2 K/uL (1.8-7.7); NEUTROPHILS % (AUTO) 66.6 % (42.2-75.2); PLATELET COUNT (AUTO) 126 K/uL (140-450); RED BLOOD CELL COUNT(AUTO) 3.64 MIL/uL (4.20-6.10); RED CELL DISTRIBUTION WIDTH 14.1 % (11.6-13.7); WHITE BLOOD COUNT (AUTO) 6.3 K/uL (4.8-10.8)
[2022-10-29 08:00] VITALS: BP 105/57
[2022-10-29 08:32] LABS: ALBUMIN 3.1 g/dL (3.4-5.0); ANION GAP 18.1 (8-16); CARBON DIOXIDE 23.3 mmol/L (21-32); CREATININE 0.8 mg/dL (0.6-1.3); MAGNESIUM 1.7 mg/dL (1.8-2.4); PHOSPHORUS 3.1 mg/dL (2.5-4.9); POTASSIUM 4.4 mmol/L (3.5-5.1); TOTAL BILIRUBIN 1.6 mg/dL (0.0-1.0)
[2022-10-29] MEDS ORDERED: MAGNESIUM OXIDE 400 MG TAB PO SCH (11:00)
--- NOTE | 2022-10-29 11:21 | NUR ---
ADMINISTERED MAG OX FOR MAG LEVEL OF 1.7
--- NOTE | 2022-10-29 12:10 | NUR ---
PATIENT HAS BEEN SCREENED AND CATEGORIZED HIGH NUTRITION RISK. PATIENT WILL BE SEEN WITHIN 1-2 DAYS OF ADMISSION. 10/29/[address]
[2022-10-29 15:01] VITALS: BP 105/67
--- NOTE | 2022-10-29 16:02 | NUR ---
DISCHARGE PACKET DISCUSSED WITH PT. IV AND NAME BAND REMOVED. PT GATHERED ALL BELONGING AND WALKED TO FRONT OF HOSPITAL LOBBY. PT IN STABLE CONDITION. DC TO HOME.
--- NOTE | 2022-10-29 16:11 | NUR ---
DC PLANNING SW MET WITH PT AT BEDSIDE TO COMPLETE ASSESSMENT. PT REPORTS RESIDING IN A SINGLE STORY HOME WITH HIS FAMILY AT THE ADDRESS LISTED ON FILE. PT IDENTIFIED JONE JOSEPH, MOM, AND PASTORA JOSEPH, FATHER, EMERGENCY CONTACTS. PT DENIES HAVING AD IN PLACE AND DECLINED AD OFFERED BY MARQUITA. PT REPORTS LAST VISIT WITH PCP, DR LUIS 2 MONTHS AGO. PT REPORTS HE MEETS WITH PCP REGULARLY. PT REPORTS HE IS MEDICATION COMPLIANT AND DENIES BARRIERS IN ACCESS TO MEDICATION. PT REPORTS RECEIVING MEDICATION FROM [facility] IN [place], WHEN NEEDED. PT REPORTS MENTAL HEALTH HX OF DEPRESSION, MDD AND OCD. PT REPORTS MEETIGN WITH THERAPIST WEEKLY. PT REPORTS CHRONIC HX OF ALCOHOL USE SPANNING OVER 12 YRS. PT REPORTS TRIGGERS TO DRINKING IS HOT WEATHER. SW ATTEMPTED TO PROVIDE PT WITH PSYCHOEDUCATION ON [facility] ALCOHOL USE, HOWEVER PT REPORTED THAT HE IS WELL AWARE OF HEALTH IMPLICATIONS. PT REPORTS PARTICIPATING IN IN-PT REHAB PROGRAM ([facility]) FROM NOV -JANUARY 2020. PT REPORTS BEING SOBER FOR 8 MONTHS FOLLOWING REHAB PROGRAM HOWEVER, RELAPSED. PT ACCEPTED SUBSTANCE USE RESOURCES OFFERED BY MARQUITA. PT DENIES HX OF DIABETES, DIALYSIS, HH, SNF PLACEMENT. PT REPORTS DC PLAN IS TO RETURN HOME WITH FAMILY PROVIDING TRANSPORTATION, WHEN MEDICALLY STABLE. MARQUITA INQUIRED ON ADDITIONAL RESOURCES NEEDED, PT DECLINED AT THIS TIME. Addendum: 10/29/22 at 1612 by Juan JOSEPH Amended: Links added. Addendum: 10/30/22 at 1659 by Juan Victoria SS MARQUITA OUTREACHED TO PATIENTS PCP OFFICE AT [phone]. MARQUITA SPOKE WITH MANI AT OFFICE, APPT SCHEDULED FOR 11/04/22 AT 9:15 PM AT [address] [facility] [id number], [facility] . PATIENT WAS PROVIDED WITH APPT DETAILS THAT INCLUDED; DATE, TIME, ADDRESS, PHONE NUMBER AND DR. PT ACCEPTED
== END 2022-10-29 16:52 | disposition home or self-care (01) ==
LOC: MED 02:25 → MMU 12:07 → MTU 16:44
PROVIDERS: ADMIT Hospitalist; ATTEND Hospitalist
DX: F10.239 Alcohol dependence with withdrawal, unspecified (principal); Z20.822 Contact with and (suspected) exposure to COVID-19; K76.0 Fatty (change of) liver, not elsewhere classified; K56.1 Intussusception; D75.89 Other specified diseases of blood and blood-forming organs; E87.8 Other disorders of electrolyte and fluid balance, not elsewhere classified; E80.6 Other disorders of bilirubin metabolism; R74.01 Elevation of levels of liver transaminase levels; Z79.899 Other long term (current) drug therapy
CPT/HCPCS: 36415; 74177; 80053; 81003; 83690; 83735; 84100; 85025; 87426; 96360; 96361; 99285; G0378; J2060; Q9967

== ENCOUNTER 2022-12-25 22:40 | Inpatient (IN) | payer OTHER ==
[~2022-12-25] VITALS: Ht 180.3 cm; Wt 73.9 kg
[~2022-12-25 22:40] MED LIST changes: +CHLO25CA PO; +CYCL-711 PO; +FOLI1TAB89 PO; +HYDR50CA9 PO; +[UNRECOGNIZED DRUG - CODE] PO
[2022-12-25] MEDS ORDERED: MAG SULF 2000 MG/WATER PREMIX 50 ML IV ONE (22:45)
[2022-12-25] MEDS ORDERED: FOLIC ACID 5 MG/ML SYR IM ONE (22:45)
[2022-12-25] MEDS ORDERED: THIAMINE 200 MG/2 ML VIAL IM ONE (22:45)
[2022-12-25] MEDS ORDERED: MULTIVITAMIN-12 10 ML in NACL 0.9% 1,000 ML IV ONE (22:45)
[2022-12-25] MEDS ORDERED: LORazepam 2 MG/ML VIAL IVP ONE (22:45)
[2022-12-25 23:05] VITALS: BP 141/102
[2022-12-25 23:15] LABS: BASOPHILS % (AUTO) 0.1 % (0.0-2.0); HEMATOCRIT 42.6 % (36-52); HEMOGLOBIN 14.6 g/dL (12.0-18.0); LYMPHOCYTES # (AUTO) 0.6 K/uL (2.0-11.5); LYMPHOCYTES % (AUTO) 8.4 % (20.5-51.1); MEAN CORPUSCULAR HEMOGLOBIN 36 pg (27-31); MEAN CORPUSCULAR HGB CONC 34 g/dL (33-37); MEAN CORPUSCULAR VOLUME 106.1 fL (80-94); MONOCYTES # (AUTO) 0.7 K/uL (0.8-1.0); MONOCYTES % (AUTO) 9.8 % (1.7-9.3); NEUTROPHILS # (AUTO) 5.4 K/uL (1.8-7.7); PLATELET COUNT (AUTO) 127 K/uL (140-450); RED BLOOD CELL COUNT(AUTO) 4.02 MIL/uL (4.20-6.10); RED CELL DISTRIBUTION WIDTH 14.3 % (11.6-13.7); WHITE BLOOD COUNT (AUTO) 6.7 K/uL (4.8-10.8)
[2022-12-25 23:32] LABS: ALBUMIN 4.8 g/dL (3.4-5.0); ANION GAP 24.9 (8-16); CARBON DIOXIDE 17.7 mmol/L (21-32); CREATININE 0.9 mg/dL (0.6-1.3); POTASSIUM 4.6 mmol/L (3.5-5.1); TOTAL BILIRUBIN 3.1 mg/dL (0.0-1.0)
[2022-12-25 23:42] LABS: NEUTROPHILS % (AUTO) 81.7 % (42.2-75.2)
[2022-12-25] MEDS ORDERED: FOLIC ACID 5 MG/ML SYR ONE (23:51)
[2022-12-25] MEDS ORDERED: THIAMINE 200 MG/2 ML VIAL ONE (23:51)
[2022-12-25] MEDS ORDERED: LORazepam 2 MG/ML VIAL ONE (23:51)
[2022-12-25] MEDS ORDERED: MULTIVITAMIN-12 10 ML VIAL IV ONE (23:57)
--- NOTE | 2022-12-26 00:03 | NUR ---
Pt taken to CT
--- NOTE | 2022-12-26 01:25 | NUR ---
Pt returned from CT
--- NOTE | 2022-12-26 05:09 | NUR ---
Pt resting at this time. No s/s distress. No s/s discomfort.
[2022-12-26] MEDS ORDERED: METOPROLOL 5 MG/5 ML VIAL IVP ONE (05:15)
[2022-12-26] MEDS ORDERED: diphenhydrAMINE 50 MG/ML VIAL IVP ONE (05:15)
[2022-12-26] MEDS ORDERED: METOPROLOL 5 MG/5 ML VIAL ONE (05:21)
[2022-12-26] MEDS ORDERED: diphenhydrAMINE 50 MG/ML VIAL ONE (05:21)
--- NOTE | 2022-12-26 05:47 | NUR ---
BELONGINGS LIST DONE.
--- NOTE | 2022-12-26 05:49 | NUR ---
Swabs collected and sent to lab
--- NOTE | 2022-12-26 07:00 | NUR ---
Pt sitting on bed. No c/o discomfort at this time
--- NOTE | 2022-12-26 07:30 | NUR ---
Gretchen guerra in [facility] - 12/26/22 at 0745 by VIKKI Report given to Jami WHEATLEY for transfer of care.
--- NOTE | 2022-12-26 07:30 | NUR ---
RECEIVED REPORT FROM JENY RN AND JUDI RN, TRANSFER OF CARE AT THIS TIME, RECEIVED PT IN BED AWAKE, VERBALLY RESPONSIVE, NO TREMORS NOTED AT THIS TIME
--- NOTE | 2022-12-26 08:53 | NUR ---
DR PATINO AT BEDSIDE FOR PT QUESTIONS REGARDING ADMISSION AND DISCUSSION OF LAB/IMAGING RESULTS
[2022-12-26] MEDS ORDERED: LORazepam 2 MG/ML VIAL IVP PRN (09:00)
[2022-12-26] MEDS ORDERED: ONDANSETRON 4 MG/2 ML VIAL IVP PRN (09:00)
[2022-12-26] MEDS ORDERED: THIAMINE 100 MG TAB PO SCH (09:00)
[2022-12-26] MEDS ORDERED: FOLIC ACID 1 MG TAB PO SCH (09:00)
[2022-12-26] MEDS ORDERED: ACETAMINOPHEN 325 MG TAB PO PRN (09:00)
[2022-12-26] MEDS ORDERED: DEXT 5% /NACL 0.9% 1,000 ML IV SCH (09:00)
[2022-12-26] MEDS ORDERED: MULTIVITAMIN/MINERALS 1 TAB PO SCH (09:00)
[2022-12-26] MEDS: LORazepam 1 MG TAB PO SCH ×3 (09:27→17:54)
--- NOTE | 2022-12-26 09:59 | NUR ---
PT MOVED TO BED 12
--- NOTE | 2022-12-26 11:12 | NUR ---
PT GIVEN JUICE, AND TUNA SANDWICH
--- NOTE | 2022-12-26 11:49 | NUR ---
PT NOTED TO BE GETTING OUT OF BED, TREMORS NOTED IN THE RIGHT HAND AND WALKING AROUND THE UNIT, INFORMED THAT THEY NEED TO STAY IN THEIR ROOM, STATES THAT HE'S "GETTING ANTSY"
--- NOTE | 2022-12-26 13:05 | NUR ---
Patient will be admitted to care of DR STOUT. Admited to [facility]. Will go to room 122B. Belongings list completed. Report to BERNICE WHEATLEY.
[2022-12-26 13:15] VITALS: BP 125/94
--- NOTE | 2022-12-26 13:15 | NUR ---
RECEIVED PATIENT REPORT FROM ER NURSE. PT ADMITTED FOR ALCOHOL WITHDRAWAL. PT IS AOX3, ABLE TO MAKE NEEDS KNOWN. ON ROOM AIR AND NO DISTRESS NOTED. SKIN IS WARM, DRY, AND INTACT. IV SITE INTACT AND PATENT. INFUSING FLUIDS WELL. DENIES PAIN AT THE MOMENT. PLAN OF CARE DISCUSSED. SAFETY PRECAUTIONS IN PLACE. CALL LIGHT WITHIN REACH. WILL CONTINUE TO MONITOR.
--- NOTE | 2022-12-26 15:21 | NUR ---
PT CUT IV LINE WITH A SHARP OBJECT. PT REFUSED IV FLUIDS BECAUSE HE DOES NOT WANT TO BE ATTACHED TO THE IV LINE FOR LONG. NOTIFIED MD REGARDING THIS SITUATION AND NEW ORDERS WERE RECEIVED..
[2022-12-26 16:00] VITALS: BP 118/82
--- NOTE | 2022-12-26 17:45 | NUR ---
FOUND 4 UNKNOWN MEDICATION ON PATIENT BEDSIDE TABLE. PT SAID THAT HE MISSED HIS DIAZEPAM DOSES AND WAS GOING TO INGEST THEM. CONFISCATED THE MEDS AND NOTIFIED .
--- NOTE | 2022-12-26 17:50 | NUR ---
PATIENT REQUESTED TO LEAVE AMA. NOTIFIED MD THAT PATIENT IS LEAVING AMA.
--- NOTE | 2022-12-26 17:50 | NUR ---
EDUCATED THE PATIENT THE RISKS OF LEAVING AMA. PT STILL REQUESTED TO LEAVE AMA.
--- NOTE | 2022-12-26 18:13 | NUR ---
PATIENT SIGNED AMA FORM AND LEFT THE UNIT WITH SECURITY.
--- NOTE | 2022-12-26 18:42 | NUR ---
FILED INCIDENT REPORT ON PATIENT. Unique Id: [id number]
== END 2022-12-26 18:10 | disposition left against medical advice (07) | DRG 280 ==
LOC: MED 22:40 → MTU 12-26 09:01
PROVIDERS: ADMIT Internal Medicine; ATTEND Internal Medicine
DX: K70.10 Alcoholic hepatitis without ascites (principal); D69.6 Thrombocytopenia, unspecified; F10.139 Alcohol abuse with withdrawal, unspecified; Z20.822 Contact with and (suspected) exposure to COVID-19; K29.70 Gastritis, unspecified, without bleeding; Z88.1 Allergy status to other antibiotic agents
CPT/HCPCS: 36415; 80053; 85025; 96365; 96366; 96372; 96375; 99285; A9153; J1200; J2060; J3411; J3475; J3490

== ENCOUNTER 2023-07-19 17:47 | Emergency (ER) | payer OTHER ==
[~2023-07-19] VITALS: Ht 175.3 cm; Wt 70.3 kg
[~2023-07-19 17:47] MED LIST changes: -BACL10TA4 PO; -CHLO25CA PO; -DOCU-299 PO; -GABA300C PO; -HYDR50CA9 PO; -LIDO15CR2 TP; -NALT50TA PO; -NALT50TA5 PO
[2023-07-19 18:09] VITALS: BP 107/75; PULSE 90; RESP 17; TEMP 98; O2SAT 98
[2023-07-19] MEDS ORDERED: SUD30 PO (21:25)
[2023-07-19] MEDS ORDERED: PROM118S5 PO (21:25)
[2023-07-19] MEDS ORDERED: BENZ-300 PO (21:25)
[2023-07-19 22:03] LABS: FLU A ANTIGEN negative (NEGATIVE); FLU B ANTIGEN NEGATIVE (NEGATIVE)
== END 2023-07-19 21:46 | disposition home or self-care (01) ==
LOC: MED 17:47
DX: J40 Bronchitis, not specified as acute or chronic (principal); Z88.1 Allergy status to other antibiotic agents; Z79.899 Other long term (current) drug therapy; Z20.822 Contact with and (suspected) exposure to COVID-19
CPT/HCPCS: 71045; 99284

== ENCOUNTER 2024-03-24 09:54 | Day surgery (SDC) | payer OTHER ==
[~2024-03-24] VITALS: Ht 180.3 cm; Wt 67.6 kg
[~2024-03-24 09:54] MED LIST changes: +BENZ-300 PO; +CHLO-836 PO; -LIB25 PO; +MIRT-121 PO; -MIRT-92 PO; +PROM118S5 PO; +SUD30 PO
[2024-03-24] MEDS ORDERED: fentaNYL citrate 0.05 MG/ML VIAL ONE (13:06)
[2024-03-24] MEDS ORDERED: LIDOCAINE 2% 100 MG/5 ML UJET TP ONE (13:06)
[2024-03-24] MEDS: fentaNYL citrate 0.05 MG/ML VIAL IVP ONE (13:20)
[2024-03-24] MEDS ORDERED: FENTANYL C 0.025 MG/HR PATCH TD SCH (13:40)
== END 2024-03-24 14:44 | disposition home or self-care (01) ==
LOC: MDS 09:54 → MMU 10:34 → MERGE 11:30 → MDS 14:44
PROVIDERS: ATTEND Internal Medicine Gastroenterology
DX: K59.00 Constipation, unspecified (principal); I10 Essential (primary) hypertension; F32.A Depression, unspecified
CPT/HCPCS: 45378; J3010

== ENCOUNTER 2024-06-03 21:47 | Emergency (ER) | payer OTHER ==
[~2024-06-03] VITALS: Ht 180.3 cm; Wt 66.2 kg
[~2024-06-03 21:47] MED LIST changes: -BENZ-300 PO; +CHLO-757 PO; -CHLO-836 PO; -CYCL-711 PO; -PROM118S5 PO; -SUD30 PO
[2024-06-03 22:09] VITALS: BP 119/77; PULSE 68; RESP 18; TEMP 98.4; O2SAT 99
[2024-06-03 23:26] VITALS: O2SAT 99
[2024-06-03] MEDS: BACITRACIN OINT 500 UNITS/GM PKT TP ONE (23:26)
[2024-06-03] MEDS: LIDOCAINE/EPI 1% 1:100000 20 ML VIAL INJ ONE (23:26)
[2024-06-04] MEDS ORDERED: CEPH-588 PO (01:49)
[2024-06-04] MEDS ORDERED: NAPR-337 PO (01:49)
[2024-06-04] MEDS: ACETAMINOPHEN EXTRA STRENGTH 500 MG TAB PO ONE (02:02)
[2024-06-04] MEDS: cephALEXin 500 MG CAP PO ONE (02:02)
[2024-06-04 02:25] VITALS: BP_DIAS 77
== END 2024-06-04 02:25 | disposition home or self-care (01) ==
LOC: MED 21:47
DX: S51.021A Laceration with foreign body of right elbow, initial encounter (principal); Z79.899 Other long term (current) drug therapy; Z88.8 Allergy status to other drugs, medicaments and biological substances; Z88.1 Allergy status to other antibiotic agents; W01.0XXA Fall on same level from slipping, tripping and stumbling without subsequent striking against object, initial encounter; Y92.89 Other specified places as the place of occurrence of the external cause; Y93.89 Activity, other specified; Y99.8 Other external cause status
CPT/HCPCS: 12032; 73070; 73080; 90471; 90715; 99284; J2001

== ENCOUNTER 2024-06-05 19:45 | Emergency (ER) | payer OTHER ==
[~2024-06-05] VITALS: Ht 180.3 cm; Wt 67.6 kg
[~2024-06-05 19:45] MED LIST changes: +CEPH-588 PO; +NAPR-337 PO
[2024-06-05 20:05] VITALS: BP 99/64; PULSE 77; RESP 18; TEMP 99.9; O2SAT 99
[2024-06-05] MEDS ORDERED: BACITRACIN OINT 500 UNITS/GM PKT TP ONE (21:21)
== END 2024-06-05 21:30 | disposition home or self-care (01) ==
LOC: MED 19:45
DX: S51.011D Laceration without foreign body of right elbow, subsequent encounter (principal); Z48.00 Encounter for change or removal of nonsurgical wound dressing; Z79.899 Other long term (current) drug therapy; Z88.8 Allergy status to other drugs, medicaments and biological substances; Z88.1 Allergy status to other antibiotic agents; X58.XXXD Exposure to other specified factors, subsequent encounter
CPT/HCPCS: 99281

== ENCOUNTER 2024-06-13 15:24 | Emergency (ER) | payer OTHER ==
[~2024-06-13] VITALS: Ht 180.3 cm; Wt 70.3 kg
[2024-06-13 15:32] VITALS: BP 107/68; PULSE 76; RESP 20; TEMP 98.1; O2SAT 98
== END 2024-06-13 16:16 | disposition home or self-care (01) ==
LOC: MED 15:24
DX: S51.011D Laceration without foreign body of right elbow, subsequent encounter (principal); Z79.1 Long term (current) use of non-steroidal anti-inflammatories (NSAID); Z79.2 Long term (current) use of antibiotics; Z79.899 Other long term (current) drug therapy; Z88.1 Allergy status to other antibiotic agents; Z88.8 Allergy status to other drugs, medicaments and biological substances; X58.XXXD Exposure to other specified factors, subsequent encounter
CPT/HCPCS: 99281